=== PATIENT | female | born 1960 | race Two or more races ===

== ENCOUNTER 2021-05-29 23:20 | Inpatient (IN) | payer MEDICAID ==
[~2021-05-29] VITALS: Ht 160 cm; Wt 55.8 kg
[2021-05-29 23:27] VITALS: BP 120/78
[2021-05-30] VITALS (12 sets, daily range): BP systolic 91–120; BP diastolic 58–78
[2021-05-30] MEDS ORDERED: NITROGLYCERIN 0.4MG TABLET SL SL PRN (01:45)
[2021-05-30] MEDS ORDERED: ACETAMINOPHEN 325MG TABLET PO PRN ×3 (01:45→22:15)
[2021-05-30] MEDS ORDERED: ONDANSETRON HCL 4MG/2ML INJ IV PRN (01:45)
[2021-05-30] MEDS ORDERED: DEXTROSE 50% WATER 50ML SYRINGE IV PRN (01:45)
[2021-05-30] MEDS ORDERED: HYDRALAZINE 20MG/ML VIAL IV PRN (01:45)
[2021-05-30] MEDS ORDERED: ENOXAPARIN 60MG/0.6ML SYR SUBCUT SCH (03:00)
[2021-05-30] MEDS: BLOOD SUGAR DIAGNOSTIC STRIP TEST SCH ×4 (06:58→21:00)
[2021-05-30 08:30] LABS: BASOPHILS % 1.1 % (0.0-2.0); EOSINOPHILS % 3.9 % (0.0-5.0); HEMATOCRIT. 32.7 % (36.0-48.0); HEMOGLOBIN. 10.9 g/dL (12.0-16.0); LYMPHOCYTES % 32.5 % (20.0-50.0); MEAN CORPUSCULAR HEMOGLOBIN 28.8 pg (28.0-32.0); MEAN CORPUSCULAR VOLUME 86.7 fL (81.0-99.0); MEAN PLATELET VOLUME 7.3 fl (7.4-10.4); MONOCYTES % 7.5 % (2.0-8.0); PLATELET 413 x1000/uL (130-400); RED BLOOD CELL COUNT 3.77 mill/uL (4.2-5.4); RED CELL DISTRIBUTION WIDTH 14.3 % (11.6-14.6)
[2021-05-30 08:39] LABS: PROTHROMBIN TIME 10.7 sec (9.6-11.0)
[2021-05-30 08:40] LABS: CHLORIDE 102 mEq/L (98-107)
[2021-05-30] MEDS: ASPIRIN 81MG EC TABLET PO SCH (08:48)
[2021-05-30] MEDS: INSULIN LISPRO 100 UNITS/ML SUBCUT SCH ×4 (08:49→22:43)
[2021-05-30] MEDS: CLOPIDOGREL 75MG TABLET PO SCH (08:49)
[2021-05-30] MEDS: METOPROLOL TARTRATE 25MG TABLET PO SCH ×2 (08:50→22:41)
[2021-05-30] MEDS: LISINOPRIL 10MG TABLET PO SCH (08:51)
[2021-05-30] MEDS ORDERED: ENOXAPARIN 40MG/0.4ML SYR SUBCUT SCH (09:00)
[2021-05-30] MEDS: ENOXAPARIN 80MG/0.8ML SYR SUBCUT SCH ×2 (10:38→21:00)
[2021-05-30] MEDS ORDERED: INSULIN GLARGINE UD 100 UNITS/ML SYR SUBCUT SCH (22:00)
[2021-05-30] MEDS ORDERED: BISACODYL 10MG SUPP PR PRN (22:15)
[2021-05-30] MEDS ORDERED: DIPHENHYDRAMINE 25MG CAPSULE PO PRN (22:15)
[2021-05-30] MEDS ORDERED: ASCORBIC ACID 500 MG TABLET PO SCH (22:15)
[2021-05-30] MEDS ORDERED: DOCUSATE SODIUM 100MG CAPSULE PO SCH (22:30)
[2021-05-30] MEDS ORDERED: CHLORHEXIDINE GLUCONATE 4% EXTERNAL USE TOP SCH (22:30)
[2021-05-30] MEDS: ATORVASTATIN CALCIUM 40MG TABLET PO SCH (22:40)
[2021-05-30] MEDS: ALLOPURINOL 300 MG TABLET PO SCH (22:41)
[2021-05-30] MEDS ORDERED: MAGNESIUM 2 G PREMIX 50 ML IV NR (22:45)
[2021-05-31] VITALS (51 sets, daily range): BP systolic 81–145; BP diastolic 30–84
[2021-05-31] MEDS ORDERED: CEFAZOLIN 2,000 MG in DEXT 5% WATER 100 ML IV SCH (06:00)
[2021-05-31] MEDS ORDERED: INSULIN REGULAR (DRIP) 100 UNITS in SODIUM CHLORIDE 0.9% 99 ML IV SCH (06:00)
[2021-05-31] MEDS ORDERED: AMINOCAPROIC ACID 5,000 MG in SODIUM CHLORIDE 0.9% 230 ML IV SCH (06:00)
[2021-05-31] MEDS ORDERED: NOREPINEPHRINE 8 MG in DEXT 5% WATER 242 ML IV SCH (06:00)
[2021-05-31] MEDS ORDERED: PAPAVERINE HCL 180MG in SODIUM CHLORIDE 0.9% 24ML IV SCH (06:00)
[2021-05-31] MEDS ORDERED: EPINEPHRINE 5 MG in DEXT 5% WATER 245 ML IV SCH ×2 (06:00→17:00)
[2021-05-31] MEDS ORDERED: NICARDIPINE 50 MG in NS 230 ML IV SCH (06:00)
[2021-05-31] MEDS ORDERED: DEL NIDO ELECTROLYTE-S(PH 7.4) 1,000 ML IV SCH ×2 (06:00)
[2021-05-31] MEDS: ALLOPURINOL 300 MG TABLET PO SCH (06:21)
[2021-05-31] MEDS: INSULIN LISPRO 100 UNITS/ML SUBCUT SCH ×2 (06:39→10:48)
[2021-05-31] MEDS: BLOOD SUGAR DIAGNOSTIC STRIP TEST SCH ×11 (06:40→23:55)
[2021-05-31] MEDS ORDERED: SKIN ADHESIVE 0.7 GM EA TOP ONE (07:08)
[2021-05-31] MEDS ORDERED: THROMBIN (BOVINE) 5000 UNITS/VIAL TOP ONE (07:08)
[2021-05-31] MEDS ORDERED: POLYMYXIN B SULFATE 500000 UNITS/VIAL ONE (07:08)
[2021-05-31] MEDS ORDERED: HEPARIN 1000 UNITS/ML 10ML ONE (07:10)
[2021-05-31 07:15] LABS: BASOPHILS % 0.9 % (0.0-2.0); EOSINOPHILS % 3.4 % (0.0-5.0); HEMATOCRIT. 33.3 % (36.0-48.0); LYMPHOCYTES % 37.8 % (20.0-50.0); MEAN CORPUSCULAR VOLUME 87.5 fL (81.0-99.0); MEAN PLATELET VOLUME 7.5 fl (7.4-10.4); MONOCYTES % 7.1 % (2.0-8.0); NEUTROPHILS % 50.8 % (40.0-76.0); PLATELET 425 x1000/uL (130-400); RED BLOOD CELL COUNT 3.81 mill/uL (4.2-5.4); RED CELL DISTRIBUTION WIDTH 14.5 % (11.6-14.6)
[2021-05-31 07:26] LABS: CHLORIDE 105 mEq/L (98-107)
[2021-05-31 07:35] LABS: PHOSPHORUS 4.3 mg/dL (2.5-4.9)
[2021-05-31] MEDS: CLOPIDOGREL 75MG TABLET PO SCH (08:34)
[2021-05-31] MEDS: ASPIRIN 81MG EC TABLET PO SCH (08:34)
[2021-05-31] MEDS: METOPROLOL TARTRATE 25MG TABLET PO SCH ×2 (08:34→20:09)
[2021-05-31] MEDS: LISINOPRIL 10MG TABLET PO SCH (08:35)
[2021-05-31] MEDS: ENOXAPARIN 80MG/0.8ML SYR SUBCUT SCH (08:35)
[2021-05-31] MEDS ORDERED: KETOROLAC 30MG/ML VIAL ONE ×2 (08:52→16:12)
[2021-05-31] MEDS ORDERED: POTASSIUM CHLORIDE 10MEQ IN WATER 50ML PREMIX IV ONE (08:52)
[2021-05-31] MEDS ORDERED: MAGNESIUM SULFATE 1G IN DEXT 5% 100ML PREMIX IV ONE (08:52)
[2021-05-31] MEDS ORDERED: CHLORHEXIDINE GLUCONATE 4% EXTERNAL USE TOP SCH (09:00)
[2021-05-31] MEDS ORDERED: DOPAMINE 400MG/250ML PREMIX 250 ML IV ONE (12:19)
[2021-05-31] MEDS ORDERED: MIDAZOLAM HCL 2 MG/2 ML VIAL ONE (12:38)
[2021-05-31] MEDS ORDERED: HYDROMORPHONE HCL/PF 2MG/ML (OR) ONE (12:38)
[2021-05-31] MEDS ORDERED: ROCURONIUM BROMIDE 10MG/ML VIAL 5ML IV ONE (13:38)
[2021-05-31] MEDS ORDERED: DEXAMETHASONE 4MG/ML 1ML VIAL ONE (13:59)
[2021-05-31] MEDS ORDERED: ONDANSETRON HCL 4MG/2ML INJ ONE (13:59)
[2021-05-31] MEDS ORDERED: HEPARIN 10,000 UNITS/ML VIAL ONE (14:00)
[2021-05-31] MEDS ORDERED: METOCLOPRAMIDE HCL 10MG/2ML VIAL ONE (14:01)
[2021-05-31] MEDS ORDERED: STERILE WATER FOR INJECTION 10ML VIAL ONE (14:11)
[2021-05-31] MEDS ORDERED: DEXTROSE 50% WATER 50ML SYRINGE IV PRN ×2 (15:30)
[2021-05-31] MEDS ORDERED: KCL 10MEQ/50ML PREMIX 150 ML IV PRN (15:30)
[2021-05-31] MEDS ORDERED: KCL 10MEQ/50ML PREMIX 100 ML IV PRN (15:30)
[2021-05-31] MEDS ORDERED: MAGNESIUM 1 G PREMIX 100 ML IV PRN (16:45)
[2021-05-31] MEDS ORDERED: ACETAMINOPHEN 325MG TABLET PO PRN (16:45)
[2021-05-31] MEDS ORDERED: SODIUM CHLORIDE 0.9% 500 ML IV PRN (16:45)
[2021-05-31] MEDS ORDERED: MAGNESIUM SULFATE 3 GM in DEXT 5% WATER 100 ML IV PRN (16:45)
[2021-05-31] MEDS ORDERED: CALCIUM CHLORIDE 3,000 MG in DEXT 5% WATER 250 ML IV PRN (16:45)
[2021-05-31] MEDS ORDERED: ALBUMIN HUMAN 25GM/100ML (25%) IV PRN (16:45)
[2021-05-31] MEDS ORDERED: MAGNESIUM 2 G PREMIX 50 ML IV PRN (16:45)
[2021-05-31] MEDS ORDERED: ALBUMIN HUMAN 12.5G/250ML (5%) IV PRN (16:45)
[2021-05-31 16:54] LABS: BG BASE EXCESS -4.5 mmol/L (-2.0-2.0); BG CARBOXYHEMOGLOBIN 0.3 % (0.5-1.5); BG DEOXYHEMOGLOBIN 5.8 % (0.0-5.0); BG HCO3 ACT 21.6 mmol/L (22.0-26.0); BG METHEMOGLOBIN 0.3 % (0.0-1.5); BG OXYGEN SATURATION 94.2 % (92.0-98.5); BG OXYHEMOGLOBIN 93.6 % (94.0-97.0); BG PCO2 43.6 mmHg (35.0-45.0); BG PH 7.313 (7.350-7.450); BG SAMPLE SITE ALINE; BG TOTAL HEMOGLOBIN 11.9 g/dL (12.0-18.0); BG VENT MODE MASK - SIMPLE
[2021-05-31] MEDS ORDERED: NALOXONE HCL 0.4MG/ML VIAL IV PRN (17:00)
[2021-05-31] MEDS ORDERED: MORPHINE SULFATE 2 MG/ML CPJ (NOT FOR IM USE) IV PRN (17:00)
[2021-05-31] MEDS ORDERED: DOPAMINE 400MG/250ML PREMIX 250 ML IV SCH (17:00)
[2021-05-31] MEDS ORDERED: DEXT 5%/0.45% NACL 1000ML 1,000 ML IV SCH (17:15)
[2021-05-31 17:30] LABS: HEMATOCRIT. 32.6 % (36.0-48.0); HEMOGLOBIN. 10.6 g/dL (12.0-16.0); MEAN CORPUSCULAR HEMOGLOBIN 28.8 pg (28.0-32.0); MEAN CORPUSCULAR VOLUME 88.2 fL (81.0-99.0); MEAN PLATELET VOLUME 7.6 fl (7.4-10.4); PLATELET 604 x1000/uL (130-400); RED BLOOD CELL COUNT 3.69 mill/uL (4.2-5.4); RED CELL DISTRIBUTION WIDTH 14.2 % (11.6-14.6)
[2021-05-31 17:36] LABS: CHLORIDE 108 mEq/L (98-107)
[2021-05-31] MEDS: CEFAZOLIN 1000MG PREMIX 50 ML IV SCH (17:47)
[2021-05-31] MEDS: KETOROLAC 30MG/ML VIAL IV PRN (17:48)
[2021-05-31] MEDS: BACITRACIN 15GM TUBE TOP SCH (18:00)
[2021-05-31] MEDS ORDERED: ALBUMIN HUMAN 25GM/100ML (25%) IV NR (18:15)
[2021-05-31] MEDS: KCL 10MEQ/50ML PREMIX 200 ML IV PRN ×3 (18:18→18:21)
[2021-05-31] MEDS ORDERED: FUROSEMIDE 40MG/4ML VIAL IVP NR (18:30)
[2021-05-31] MEDS: DOCUSATE SODIUM 100MG CAPSULE PO SCH (18:48)
[2021-05-31] MEDS: FAMOTIDINE 20MG/2ML VIAL IV SCH (18:48)
[2021-05-31] MEDS: INSULIN REGULAR (DRIP) 100 UNITS in SODIUM CHLORIDE 0.9% 100 ML IV SCH (19:29)
[2021-05-31] MEDS: ATORVASTATIN CALCIUM 40MG TABLET PO SCH (20:10)
[2021-05-31] MEDS: OXYCODONE HCL/ACETAMINOPHEN 5/325MG TABLET PO PRN (20:10)
[2021-05-31] MEDS: ONDANSETRON HCL 4MG/2ML INJ IV PRN (20:10)
[2021-05-31] MEDS: IPRATROPIUM/ALBUTEROL 0.5-3(2.5)MG/3ML NEB HHN SCH (20:29)
[2021-05-31 22:17] LABS: PLATELET ESTIMATE MARKEDLY INCREASED
[2021-05-31 23:31] LABS: HEMATOCRIT. 23.5 % (36.0-48.0); HEMOGLOBIN. 8.3 g/dL (12.0-16.0); MEAN CORPUSCULAR HEMOGLOBIN 29.9 pg (28.0-32.0); MEAN CORPUSCULAR VOLUME 84.9 fL (81.0-99.0); MEAN PLATELET VOLUME 7.3 fl (7.4-10.4); PLATELET 380 x1000/uL (130-400); RED BLOOD CELL COUNT 2.76 mill/uL (4.2-5.4); RED CELL DISTRIBUTION WIDTH 14.2 % (11.6-14.6)
[2021-05-31 23:33] LABS: CHLORIDE 108 mEq/L (98-107)
[2021-05-31 23:37] LABS: PHOSPHORUS 1.8 mg/dL (2.5-4.9)
[2021-06-01] VITALS (89 sets, daily range): BP systolic 90–154; BP diastolic 14–99
[2021-06-01] MEDS: ONDANSETRON HCL 4MG/2ML INJ IV PRN ×4 (00:29→10:59)
[2021-06-01] MEDS: IPRATROPIUM/ALBUTEROL 0.5-3(2.5)MG/3ML NEB HHN SCH ×2 (00:46→04:25)
[2021-06-01] MEDS: BLOOD SUGAR DIAGNOSTIC STRIP TEST SCH ×19 (01:00→21:04)
[2021-06-01] MEDS: CEFAZOLIN 1000MG PREMIX 50 ML IV SCH ×3 (02:46→17:23)
[2021-06-01 03:18] LABS: PLATELET ESTIMATE NORMAL
[2021-06-01 04:16] LABS: BASOPHILS % 0.1 % (0.0-2.0); HEMOGLOBIN. 7.1 g/dL (12.0-16.0); LYMPHOCYTES % 8.4 % (20.0-50.0); MEAN CORPUSCULAR HEMOGLOBIN 29.2 pg (28.0-32.0); MEAN CORPUSCULAR VOLUME 86.3 fL (81.0-99.0); MONOCYTES % 6.9 % (2.0-8.0); NEUTROPHILS % 84.6 % (40.0-76.0); PLATELET 328 x1000/uL (130-400); RED BLOOD CELL COUNT 2.43 mill/uL (4.2-5.4)
[2021-06-01 04:19] LABS: CHLORIDE 108 mEq/L (98-107)
[2021-06-01 04:22] LABS: HEMATOCRIT. 20.9 % (36.0-48.0)
[2021-06-01 04:25] LABS: PHOSPHORUS 2.7 mg/dL (2.5-4.9)
[2021-06-01] MEDS: KETOROLAC 30MG/ML VIAL IV PRN (05:21)
[2021-06-01] MEDS ORDERED: FUROSEMIDE 40MG/4ML VIAL IVP SCH (06:45)
[2021-06-01] MEDS: FAMOTIDINE 20MG/2ML VIAL IV SCH (08:29)
[2021-06-01] MEDS: DOCUSATE SODIUM 100MG CAPSULE PO SCH (08:29)
[2021-06-01] MEDS: ASPIRIN 81MG TABLET PO SCH (08:29)
[2021-06-01] MEDS: CLOPIDOGREL 75MG TABLET PO SCH (08:29)
[2021-06-01] MEDS: METOPROLOL TARTRATE 25MG TABLET PO SCH ×2 (08:30→21:00)
[2021-06-01] MEDS: INSULIN REGULAR (DRIP) 100 UNITS in SODIUM CHLORIDE 0.9% 100 ML IV SCH (08:31)
[2021-06-01] MEDS: BACITRACIN 15GM TUBE TOP SCH ×2 (08:32→17:23)
[2021-06-01] MEDS ORDERED: IPRATROPIUM/ALBUTEROL 0.5-3(2.5)MG/3ML NEB HHN PRN (13:00)
[2021-06-01] MEDS ORDERED: ASPIRIN 81MG TABLET PO SCH (13:30)
[2021-06-01] MEDS: FAMOTIDINE 20MG TABLET PO SCH ×2 (13:30→20:59)
[2021-06-01 14:09] LABS: HEMOGLOBIN 10.6 g/dL (12.0-16.0)
[2021-06-01] MEDS ORDERED: DEXTROSE 50% WATER 50ML SYRINGE IV PRN (14:30)
[2021-06-01] MEDS: THROAT LOZENGES-BENZOCAINE/MENTH/CETYLPYRD CL LOZENGES MM PRN (15:20)
[2021-06-01] MEDS: INSULIN LISPRO 100 UNITS/ML SUBCUT SCH ×2 (17:20→21:01)
[2021-06-01] MEDS: DOCUSATE SODIUM 250MG CAPSULE PO SCH (17:23)
[2021-06-01] MEDS: OXYCODONE HCL/ACETAMINOPHEN 5/325MG TABLET PO PRN (19:30)
[2021-06-01] MEDS: ATORVASTATIN CALCIUM 40MG TABLET PO SCH (20:59)
[2021-06-02] VITALS (14 sets, daily range): BP systolic 87–133; BP diastolic 55–78
[2021-06-02] MEDS: OXYCODONE HCL/ACETAMINOPHEN 5/325MG TABLET PO PRN ×3 (03:31→20:28)
[2021-06-02 06:21] LABS: BASOPHILS % 0.6 % (0.0-2.0); EOSINOPHILS % 0.4 % (0.0-5.0); HEMATOCRIT. 31.6 % (36.0-48.0); HEMOGLOBIN. 10.5 g/dL (12.0-16.0); LYMPHOCYTES % 21.8 % (20.0-50.0); MEAN CORPUSCULAR HEMOGLOBIN 29.9 pg (28.0-32.0); MEAN CORPUSCULAR VOLUME 89.6 fL (81.0-99.0); MEAN PLATELET VOLUME 7.7 fl (7.4-10.4); MONOCYTES % 6.5 % (2.0-8.0); NEUTROPHILS % 70.7 % (40.0-76.0); PLATELET 323 x1000/uL (130-400); RED BLOOD CELL COUNT 3.52 mill/uL (4.2-5.4); RED CELL DISTRIBUTION WIDTH 14.3 % (11.6-14.6)
[2021-06-02] MEDS: BLOOD SUGAR DIAGNOSTIC STRIP TEST SCH ×4 (06:34→21:25)
[2021-06-02] MEDS: INSULIN LISPRO 100 UNITS/ML SUBCUT SCH ×4 (06:35→21:24)
[2021-06-02 07:01] LABS: PHOSPHORUS 3.6 mg/dL (2.5-4.9)
[2021-06-02] MEDS: METOPROLOL TARTRATE 25MG TABLET PO SCH ×2 (09:00→21:25)
[2021-06-02] MEDS: FAMOTIDINE 20MG TABLET PO SCH ×2 (09:19→21:25)
[2021-06-02] MEDS: ASPIRIN 81MG TABLET PO SCH (09:19)
[2021-06-02] MEDS: DOCUSATE SODIUM 250MG CAPSULE PO SCH ×2 (09:19→17:17)
[2021-06-02] MEDS: CLOPIDOGREL 75MG TABLET PO SCH (09:19)
[2021-06-02] MEDS: BACITRACIN 15GM TUBE TOP SCH ×2 (09:21→17:17)
[2021-06-02] MEDS ORDERED: FUROSEMIDE 40MG/4ML VIAL IVP ONE (12:45)
[2021-06-02] MEDS ORDERED: MAGNESIUM 2 G PREMIX 50 ML IV ONE (13:00)
[2021-06-02] MEDS: THROAT LOZENGES-BENZOCAINE/MENTH/CETYLPYRD CL LOZENGES MM PRN (17:44)
[2021-06-02] MEDS: ATORVASTATIN CALCIUM 40MG TABLET PO SCH (21:25)
[2021-06-02] MEDS ORDERED: INSULIN GLARGINE UD 100 UNITS/ML SYR SUBCUT SCH (22:00)
[2021-06-03] VITALS (9 sets, daily range): BP systolic 98–135; BP diastolic 59–76
[2021-06-03] MEDS: OXYCODONE HCL/ACETAMINOPHEN 5/325MG TABLET PO PRN ×3 (05:07→18:18)
[2021-06-03] MEDS: BLOOD SUGAR DIAGNOSTIC STRIP TEST SCH ×3 (06:59→17:26)
[2021-06-03] MEDS: ASPIRIN 81MG TABLET PO SCH (08:23)
[2021-06-03] MEDS: DOCUSATE SODIUM 250MG CAPSULE PO SCH ×2 (08:23→18:05)
[2021-06-03] MEDS: FAMOTIDINE 20MG TABLET PO SCH (08:23)
[2021-06-03] MEDS: CLOPIDOGREL 75MG TABLET PO SCH (08:23)
[2021-06-03] MEDS: METOPROLOL TARTRATE 25MG TABLET PO SCH (08:24)
[2021-06-03] MEDS: INSULIN LISPRO 100 UNITS/ML SUBCUT SCH ×3 (08:25→18:05)
[2021-06-03] MEDS: BACITRACIN 15GM TUBE TOP SCH ×2 (08:30→18:05)
[2021-06-03 08:50] LABS: CHLORIDE 103 mEq/L (98-107)
[2021-06-03 08:54] LABS: BASOPHILS % 0.7 % (0.0-2.0); EOSINOPHILS % 2.7 % (0.0-5.0); HEMATOCRIT. 33.3 % (36.0-48.0); LYMPHOCYTES % 23.7 % (20.0-50.0); MEAN CORPUSCULAR HEMOGLOBIN 29.3 pg (28.0-32.0); MEAN CORPUSCULAR VOLUME 88.6 fL (81.0-99.0); MEAN PLATELET VOLUME 7.6 fl (7.4-10.4); MONOCYTES % 6.5 % (2.0-8.0); NEUTROPHILS % 66.4 % (40.0-76.0); PLATELET 343 x1000/uL (130-400); RED BLOOD CELL COUNT 3.76 mill/uL (4.2-5.4); RED CELL DISTRIBUTION WIDTH 14.7 % (11.6-14.6)
[2021-06-03 08:57] LABS: PHOSPHORUS 3.1 mg/dL (2.5-4.9)
[2021-06-03] MEDS ORDERED: TOPUD PO (09:45)
[2021-06-03] MEDS ORDERED: DOCU250C14 PO (09:45)
[2021-06-03] MEDS ORDERED: CLOP75TA15 PO (09:45)
[2021-06-03] MEDS ORDERED: LIP40 PO (09:45)
[2021-06-03] MEDS ORDERED: METO25TA6 PO (09:45)
[2021-06-03] MEDS ORDERED: ASPI-1160 PO (09:45)
[2021-06-03] MEDS: THROAT LOZENGES-BENZOCAINE/MENTH/CETYLPYRD CL LOZENGES MM PRN (12:06)
[2021-06-03] MEDS ORDERED: HYDR-4001 MT ×2 (17:09)
[2021-06-03] MEDS ORDERED: POLY119P2 MT ×2 (17:15)
[2021-06-03] MEDS ORDERED: POLY119P2 PO (21:09)
[2021-06-03] MEDS ORDERED: HYDR-4001 PO ×2 (21:09)
[2021-06-04] MEDS ORDERED: HYDR-4001 PO (11:06)
== END 2021-06-03 23:33 | disposition home or self-care (01) | DRG 165 ==
LOC: 3WST 23:20 → CVICU 05-31 12:49 → 3WST 06-01 18:45
PROVIDERS: ADMIT Internal Medicine; ATTEND Internal Medicine
PROC: 02100Z9 Bypass Coronary Artery, One Artery from Left Internal Mammary, Open Approach (ICD-10-PCS; principal; 2021-05-31)
PROC: 021309W Bypass Coronary Artery, Four or More Arteries from Aorta with Autologous Venous Tissue, Open Approach (ICD-10-PCS; 2021-05-31)
PROC: 06BQ4ZZ Excision of Left Saphenous Vein, Percutaneous Endoscopic Approach (ICD-10-PCS; 2021-05-31)
PROC: 30233N1 Transfusion of Nonautologous Red Blood Cells into Peripheral Vein, Percutaneous Approach (ICD-10-PCS; 2021-06-01)
DX: I21.4 Non-ST elevation (NSTEMI) myocardial infarction (principal); E44.1 Mild protein-calorie malnutrition; D64.9 Anemia, unspecified; I25.10 Atherosclerotic heart disease of native coronary artery without angina pectoris; E11.9 Type 2 diabetes mellitus without complications; I10 Essential (primary) hypertension; M54.5 Low back pain; Z20.822 Contact with and (suspected) exposure to COVID-19; F41.9 Anxiety disorder, unspecified; E78.5 Hyperlipidemia, unspecified; G89.29 Other chronic pain; Z79.4 Long term (current) use of insulin; Z90.721 Acquired absence of ovaries, unilateral; E87.1 Hypo-osmolality and hyponatremia; E87.5 Hyperkalemia
CPT/HCPCS: 36415; 36600; 71045; 80048; 80053; 82375; 82805; 82962; 83036; 83735; 84100; 84132; 85014; 85018; 85025; 85347; 85520; 86850; 86900; 86920; 87426; 93005; 93306; 93880; 93970; 97110; 97116; 97162; 97166; 97530; A4216; C1729; C1751; J0690; J1100; J1170; J1265; J1644; J1815; J1885; J1940; J2250; J2405; J2440; J2765; J3475; J3480; J3490; J7040; J7050; J7060; L3908; P9016; P9047